=== PATIENT | male | born 1970 | race Caucasian/White ===

== ENCOUNTER 2024-07-26 15:46 | Emergency (ER) | payer OTHER, SELFPAY ==
[2024-07-26 15:51] VITALS: BP 137/70
--- NOTE | 2024-07-26 16:30 | ED.GENMED ---
History of Present Illness
General
Chief Complaint: Skin Surface Trauma
Source: patient
Exam Limitations: none
Time Seen by Provider: 07/26/24 16:09
Nursing documentation reviewed up to this point in time: agreed with
History of Present Illness
History of Present Illness:
Patient is a 54-year-old [id number] male who presents to the emergency department with lacerations to the left index, middle and ring fingertips after cutting them on the sheet-metal of a oven toaster. Patient denies any numbness or
paresthesias. Patient's tetanus is up-to-date.
Past History
Past History
ED Past Medical History: GERD and Hypercholesterolemia
ED Past Surgical History: Orthopedic (Arthroscopic surgery of the left knee)
Social History
Tobacco: Non-smoker
Alcohol: Occasional
Drug: None
Personal:
Living: with family
Employment: Employed
Family History
Family History: Other (Cerebral aneurysm in his father)
Review of Systems
Review of Systems
All Other Systems: Not applicable
Phy Exam
Physical Exam
Physical Exam:
Physical Exam
General: No apparent distress, alert and appropriate, well nourished, well hydrated
HENT: Normocephalic, supple
Eyes: Clear sclera, conjuctiva without injection
Neuro: Alert and oriented x 3, CN II - XII intact, no motor focality, no cerebellar dysfunction
Skin: no rash> Left index finger on distal third on palmar aspect a 3 cm laceration diagonal. NVT intact. Right middles finger on distal 1/3 palmar aspect a 2 cm diagonal laceration, NVT intact. Left ring finger has
a superficial 0.5cm flap laceration that does not require sutures. NVT intact
Psychiatric: well kept. interactive and cooperative
Extremities: No cyanosis
Course
Vital Signs
Initial and Last Documented VS:
Initial Vital Signs
Temp Pulse Resp BP Pulse Ox
98 F 60 18 137/70 100
07/26/24 15:51 07/26/24 15:51 07/26/24 15:51 07/26/24 15:51 07/26/24 15:51
Last Documented Vital Signs
Temp Pulse Resp BP Pulse Ox
98 F 60 18 137/70 100
07/26/24 15:51 07/26/24 15:51 07/26/24 15:51 07/26/24 15:51 07/26/24 15:51
Procedures
Laceration Closure
Left Distal Palmar Second Finger:
Status of Wound: clean
Size of Wound in cm: 3
Description of Wound Edges: ragged
Preparation: cleaned with saline
Anesthesia: 1% Lidocaine and added Na Bicarb to local
Revision/Debridement: minor revision
Wound exploration: extensive cleaning of contaminated wound
Type of Closure: single layer closure and interrupted sutures
Skin Closure Material: 4-0 prolene
Number of sutures: 7
Left Distal Palmar Third Finger:
Status of Wound: clean
Size of Wound in cm: 2
Description of Wound Edges: sharp
Preparation: cleaned with saline
Anesthesia: 1% Lidocaine and added Na Bicarb to local
Revision/Debridement: routine- no revision
Wound exploration: explored to base- no FB
Type of Closure: single layer closure and running stitch
Skin Closure Material: 4-0 prolene
Number of sutures: 4
*Pulse Oximetry
Patient hypoxic: no
*EKG
Interpreted by ED Provider?: NA
*[employer] Interpretation
Rate: [employer]- N/A
*Critical Care Note
Total Time (30-74mins, 75-104mins- exclusive of procedures): Not Applicable
ED Attending Note
-
Portions of this chart may have been created with voice recognition software.� Occasional wrong word or��sound alike� substitutions may have occurred due to the inherent limitations of voice recognition software.
Discharge Plan
Departure
Patient Disposition: Home (Routine Discharge)
Date of Disposition: 07/26/24
Time of Disposition: 17:13
Patient with high blood pressure during this ER visit?: No
Condition: Good
Covid-19: Not Applicable
Discharge Problem:
Laceration of left index finger, Laceration of left middle finger
Instructions: Laceration Repair With Stitches (DC)
Prescriptions:
No Action
rabeprazole [AcipHex] 20 MG tablet,delayed release (DR/EC)
20 mg PO DAILY
Referrals:
Suhas Atwood MD [Family Provider] -
Activity Restrictions/Additional Instructions:
Keep clean with soap and water. Elevate to help decrease the pain. Tylenol 1000 mg every 6 hours for pain. You may use ice to the area to help with the swelling and pain. Sutures come out in 7 to 10 days.
Interventions
Interventions:
ED-Skin Assessment Last Done: 07/26/24 16:05
Discharge Date and Time
Print Language: SENEGALESE
[2024-07-26 17:28] VITALS: BP 125/51
== END 2024-07-26 17:30 | disposition home or self-care (01) ==
LOC: EMR 15:46
PROVIDERS: EMERGENCY PHYSICIAN Emergency Medicine; FAMILY PHYSICIAN Internal Medicine
DX: S61.211A Laceration without foreign body of left index finger without damage to nail, initial encounter (principal); S61.213A Laceration without foreign body of left middle finger without damage to nail, initial encounter; S61.215A Laceration without foreign body of left ring finger without damage to nail, initial encounter; W26.8XXA Contact with other sharp object(s), not elsewhere classified, initial encounter
CPT/HCPCS: 12002; 99282